=== PATIENT | female | born 1975 | race Caucasian/White ===

== ENCOUNTER 2020-03-26 16:06 | Emergency (ER) | payer OTHER ==
[~2020-03-26] VITALS: Ht 167.6 cm; Wt 68.0 kg
[~2020-03-26 16:06] MED LIST: ALPRAZOLAM; CLONAZEPAM 0.50.5 M1 PO; HYDROCODONE-AP1 EAC6 PO; LITHIUM CARBON300 M6 PO; PAROXETINE HCL20 MG PO; PAXIL; SEROQUEL 25 MG25 M1 PO; SEROQUEL300 MG PO; TRINATE TABLET1 TAB PO
[2020-03-26] MEDS ORDERED: ADDERALL 20 MG20 MG PO (16:23)
[2020-03-26] MEDS ORDERED: CLONAZEPAM 0.50.5 M1 PO (16:23)
[2020-03-26] MEDS ORDERED: CENTANY30 GM TOP (16:42)
[2020-03-26] MEDS ORDERED: IBUPROFEN 800800 M1 PO (16:42)
[2020-03-26] MEDS ORDERED: AUGMENTIN 875-1 EACH PO (16:42)
[2020-03-26 16:54] VITALS: BP 126/78
== END 2020-03-26 16:55 | disposition home or self-care (01) ==
LOC: M.ERS 16:06
DX: S61.211A Laceration without foreign body of left index finger without damage to nail, initial encounter (principal); Z88.5 Allergy status to narcotic agent; W26.0XXA Contact with knife, initial encounter; Y93.89 Activity, other specified; Y92.89 Other specified places as the place of occurrence of the external cause; Y99.8 Other external cause status

== ENCOUNTER 2020-05-18 06:32 | Emergency (ER) | payer OTHER ==
[~2020-05-18] VITALS: Ht 170.2 cm; Wt 59.0 kg
[~2020-05-18 06:32] MED LIST changes: +ADDERALL 20 MG20 MG PO; +AUGMENTIN 875-1 EACH PO; +CENTANY30 GM TOP; +IBUPROFEN 800800 M1 PO
[2020-05-18] MEDS ORDERED: HTN MED (06:51)
[2020-05-18 07:22] LABS: HEMATOCRIT 35.2 % (37.0-47.0); HEMOGLOBIN 11.5 gm/dL (12.0-15.0); MCH 32.7 pg (26.0-34.0); MCHC 32.6 g/dL (28.0-37.0); MCV 100.1 fL (80.0-100.0); MPV 8.4 fl. (7.2-11.1); NUCLEATED RBCS 0 /100WBC; PLATELET COUNT* 244 thou/uL (150-400); RBC 3.51 mil/uL (4.20-5.00); RDW-CV 14.2 % (10.5-14.5); WBC 19.7 thou/uL (4.0-11.0)
[2020-05-18 07:22] LABS: URINE BILIRUBIN NEGATIVE (Negative); URINE BLOOD 1+ (Negative); URINE CLARITY CLEAR; URINE COLOR YELLOW; URINE GLUCOSE-RANDOM 1+ (Negative); URINE KETONES NEGATIVE (Negative); URINE NITRITE-REFLEX NEGATIVE (Negative); URINE PROTEIN 1+ (Negative)
[2020-05-18 07:25] LABS: URINE LEUKOCYTES-REFLEX 2+ (Negative)
[2020-05-18 07:30] LABS: CALCIUM 8.9 mg/dL (8.5-10.1); CREATININE 1.7 mg/dL (0.6-1.3); POTASSIUM 3.7 mmol/L (3.5-5.1)
[2020-05-18 07:32] LABS: SQUAMOUS 0-3 Few /LPF (0-3)
[2020-05-18 07:33] LABS: CASTS None Seen /LPF (None Seen); CRYSTALS None Seen /LPF (None Seen); MUCUS 0-3 Light strn/LPF (None Seen); URINE RBC 3-10 Few /HPF (0-2); URINE WBC-REFLEX >25 Many /HPF (0-5)
[2020-05-18 07:34] LABS: TOTAL BILIRUBIN 0.5 mg/dL (<0.1-1.0); TOTAL PROTEIN 6.8 g/dL (6.4-8.2)
[2020-05-18 08:34] LABS: ABSOLUTE BASOPHILS 0.2 thou/uL (0.0-0.2); ABSOLUTE LYMPHOCYTES 0.8 thou/uL (0.8-5.3); ABSOLUTE MONOCYTES 1.2 thou/uL (0.0-1.2); ABSOLUTE NEUTROPHILS 17.5 thou/uL (1.6-8.1); PLATELET ESTIMATE ADEQUATE
[2020-05-18 08:35] LABS: ANISOCYTOSIS 1+; POIKILOCYTOSIS 1+
[2020-05-18] MEDS ORDERED: ZOFRAN ODT4 MG DISSOLVE (10:06)
[2020-05-18] MEDS ORDERED: CIPROFLOXACIN500 M1 PO (10:06)
[2020-05-18] MEDS ORDERED: HYDROCODON-ACE1 EAC7 PO (10:06)
[2020-05-18 10:35] VITALS: BP 127/80
== END 2020-05-18 10:35 | disposition home or self-care (01) ==
LOC: M.ERS 06:32
PROVIDERS: Family Medicine
DX: N20.0 Calculus of kidney (principal); N39.0 Urinary tract infection, site not specified; Z88.5 Allergy status to narcotic agent; Z87.440 Personal history of urinary (tract) infections

== ENCOUNTER 2020-08-10 06:37 | Emergency (ER) | payer OTHER ==
[~2020-08-10] VITALS: Ht 170.2 cm; Wt 54.4 kg
[~2020-08-10 06:37] MED LIST changes: +CIPROFLOXACIN500 M1 PO; +HYDROCODON-ACE1 EAC7 PO; +HYTRIN 2MG CAPSU2 M1 PO; -SEROQUEL 25 MG25 M1 PO; +SEROQUEL XR 30300 M1 PO; +ZOFRAN ODT4 MG DISSOLVE
[2020-08-10 07:20] LABS: URINE BILIRUBIN NEGATIVE (Negative); URINE BLOOD 2+ (Negative); URINE CLARITY CLEAR; URINE COLOR YELLOW; URINE GLUCOSE-RANDOM NEGATIVE (Negative); URINE KETONES NEGATIVE (Negative); URINE NITRITE-REFLEX NEGATIVE (Negative); URINE PROTEIN 1+ (Negative); URINE SPECIFIC GRAVITY <= 1.005 (1.005-1.030); URINE UROBILINOGEN 0.2 E.U./dl (0.2-1.0)
[2020-08-10 07:22] LABS: URINE LEUKOCYTES-REFLEX 3+ (Negative)
[2020-08-10 07:27] LABS: CASTS None Seen /LPF (None Seen); CRYSTALS None Seen /LPF (None Seen); MUCUS 0-3 Light strn/LPF (None Seen); SQUAMOUS 0-3 Few /LPF (0-3); URINE RBC 3-10 Few /HPF (0-2); URINE WBC-REFLEX >25 Many /HPF (0-5)
[2020-08-10 07:45] LABS: HEMATOCRIT 29.2 % (37.0-47.0); MCH 33.8 pg (26.0-34.0); MCHC 34.2 g/dL (28.0-37.0); NUCLEATED RBCS 0 /100WBC; PLATELET COUNT* 219 thou/uL (150-400); RBC 2.95 mil/uL (4.20-5.00); RDW-CV 15.1 % (10.5-14.5); WBC 14.2 thou/uL (4.0-11.0)
[2020-08-10 07:55] LABS: CALCIUM 9.3 mg/dL (8.5-10.1); CREATININE 2.3 mg/dL (0.6-1.3); POTASSIUM 3.2 mmol/L (3.5-5.1)
[2020-08-10 08:00] LABS: ALBUMIN 2.3 g/dL (3.4-5.0); TOTAL BILIRUBIN 0.3 mg/dL (<0.1-1.0); TOTAL PROTEIN 6.1 g/dL (6.4-8.2)
[2020-08-10 08:13] LABS: ABSOLUTE BASOPHILS 0.1 thou/uL (0.0-0.2); ABSOLUTE LYMPHOCYTES 0.1 thou/uL (0.8-5.3); ABSOLUTE MONOCYTES 0.3 thou/uL (0.0-1.2); ABSOLUTE NEUTROPHILS 13.6 thou/uL (1.6-8.1); PLATELET ESTIMATE ADEQUATE
[2020-08-10] MEDS ORDERED: ZOFRAN ODT4 MG DISSOLVE (08:50)
[2020-08-10] MEDS ORDERED: FLOMAX0.4 MG PO (08:50)
[2020-08-10] MEDS ORDERED: HYDROCODON-ACE1 EAC7 PO (08:50)
[2020-08-10] MEDS ORDERED: CEPHALEXIN500 MG PO (08:50)
[2020-08-10 09:00] VITALS: BP 97/73
== END 2020-08-10 09:00 | disposition left against medical advice (07) ==
LOC: M.ERS 06:37
PROVIDERS: Emergency Medicine Emergency Medical Services
DX: N20.0 Calculus of kidney (principal); N39.0 Urinary tract infection, site not specified; N19 Unspecified kidney failure; Z87.442 Personal history of urinary calculi; Z87.440 Personal history of urinary (tract) infections; Z88.5 Allergy status to narcotic agent

== ENCOUNTER 2020-08-14 19:37 | Inpatient (IN) | payer OTHER ==
[~2020-08-14] VITALS: Ht 170.2 cm; Wt 60.1 kg
--- NOTE | ~2020-08-14 | OP ---
[address] [address] OPERATIVE REPORT Name: DOUGLAS BLISSN Room: [address] M.R.#: [id number] Admission: 08/14/20 Attend Phys: Cintia Dutton MD Discharge: 08/15/20 Date of : 79 Report #: [id number] THIS REPORT FOR: cc: DINA - No family physician/PCP DINA - No family physician/PCP Carey Carty MD ~ DOC #: [id number] Carey Carty DATE OF SURGERY: 08/15/2020 PREOPERATIVE DIAGNOSIS: Left ureteral stone. POSTOPERATIVE DIAGNOSIS: Left ureteral stone. PROCEDURES PERFORMED: Cystoscopy, left retrograde pyelogram, left ureteroscopy, laser lithotripsy, basket retrieval of stone fragments, left ureteral stent placement, 4.8-Malaysian x 26 cm with strings removed. SURGEON: Carey Carty MD [employer]: None. ANESTHETIC: General along with a 2% lidocaine jelly placed locally intraurethral. ESTIMATED BLOOD LOSS: 1 mL. SPECIMEN: Stone fragments sent to lab. DRAINS: Left ureteral stent placement, 4.8-Malaysian x 26 cm with strings removed. COMPLICATIONS: None. FINDINGS: There is a radiopaque left distal ureteral stone with associated ureteral edema and inflammation. INDICATIONS: This 45-year-old female had presented to the ER failing outpatient pain control and had developed renal failure due to a large distal ureteral stone measuring 7.2 mm. She voiced understanding of risks including bleeding, infection, requiring a staged procedure with removal of the stone at a later time, damage to the kidney, ureter, or bladder. The temporary nature of the stent was in need for stent removal in the future, that may include either office cystoscopy or strings left on the stent. She voiced understanding of risks and benefits and signed the informed consent. DESCRIPTION OF PROCEDURE: The patient had received [place] [address] OPERATIVE REPORT Name: DOUGLAS BLISS ANICETO Room: [address]#: [id number] Admission: 08/14/20 Attend Phys: Cintia Dutton MD Discharge: 08/15/20 Date of : 79 Report #: [id number] was also on scheduled Rocephin due to underlying urinary tract infection. After anesthesia was induced, she was placed in the lithotomy position. Genitalia prepped and draped in the usual sterile fashion. The 17-Malaysian rigid cystoscope was advanced through the urethra into the bladder and bladder evaluated with both 30-degree and 70-degree lens. She had orthotopic ureteral orifices. Urine was relatively clear and bladder mucosa was normal. In order to perform a left retrograde pyelogram, a 17-Malaysian cannula was exchanged for the 22.5-Malaysian cannula and this was advanced easily into the urethra into the bladder. The 5-Malaysian blue ureteral catheter was then advanced into the left ureteral orifice and a retrograde pyelogram performed. After the initial one, it showed the radiopaque stone. This showed the filling defect now and contrast flowed passed the stone relatively easily. The catheter was then removed. This straight tip sensor wire was then advanced into the left ureteral orifice and this did navigate past the stone easily into the left upper collecting system. The bladder was then drained and the cystoscope removed. The original 4.5-Malaysian semirigid ureteroscope lens appeared to be fractured, so this was not used. The second 4.5-Malaysian semirigid ureteroscope was then advanced into the urethra into the bladder; however, I was able to navigate into the left ureteral orifice to the stone, but due to the ureteroscope being somewhat angulated along its course rather than straight did prevent me from getting a good view point of the stone in order to safely treat with the laser. After several attempts, I decided that it would be better to go with a 6-Malaysian ureteroscope and the 4.5-Malaysian semirigid ureteroscope was exchanged for the 6-Malaysian Olympus semirigid ureteroscope. The ureteroscope itself was in great working condition, although the left ureteral orifice was not quite dilated to allow this to pass. Therefore, the 11-Malaysian inner dilator of a ureteral access sheath was then advanced over the wire under continuous fluoroscopy and appeared to stay distal to the stone in order to achieve some dilation of the distal ureteral orifice. The access sheath was backloaded off the wire. The 6-Malaysian semirigid ureteroscope was then advanced back into the bladder and this was able to advance into the left ureteral orifice and on to the level of the stone. The bladder had been drained prior to this. The 200 micron laser fiber was used at settings of 0.6 joules and 8 Hz and this was then used to fragment up the stone as some of the pieces were basketed out before final treatment of the remaining stone was able to be performed. The ureteroscope then confirmed that all the stone pieces had been removed. The ureter proximal to the stone was nicely dilated and there was no evidence of inflammation, although I did see some concentric rings that had developed probably due to the longstanding hydroureter and then the area that the stone had been lodged that was inflamed and more narrow, but there is no evidence of any injury or significant bleeding and no evidence of stone embedment, all the significant pieces had been removed. The ureteroscope was then removed. Stone pieces were collected and sent to the lab for analysis. The 22.5-Malaysian cystoscope was advanced back into the urethra into the bladder. Left retrograde pyelogram was repeated to show the upper collecting system and then over the wire, the 4.8-Malaysian x [place] [address] OPERATIVE REPORT Name: DOUGLAS BLISS Room: [address]#: [id number] Admission: 08/14/20 Attend Phys: Cintia Dutton MD Discharge: 08/15/20 Date of : 79 Report #: [id number] advanced and deployed over the wire with a good coil in the left renal pelvis under fluoroscopy and I visualized a good coil in the bladder after the wire was removed. There was good efflux from the stent. The bladder was drained. There was no evidence of any injury to the bladder and the cystoscope was removed and the 2% lidocaine jelly was placed intraurethral. She was placed back in supine position, awakened, and taken to recovery room in stable condition. There were no complications. I called her boyfriend, Kris following the procedure to let him know how the case had gone and plan is for the stent to be removed in the office in the next 1-2 weeks. Carey DOZIER/CANDIDA By: [id number] Carty MD /summer
[~2020-08-14 19:37] MED LIST changes: +CEPHALEXIN500 MG PO; +FLOMAX0.4 MG PO
[2020-08-14 19:45] VITALS: BP 152/97
[2020-08-14 19:55] LABS: URINE BILIRUBIN NEGATIVE (Negative); URINE BLOOD NEGATIVE (Negative); URINE CLARITY CLEAR; URINE COLOR YELLOW; URINE GLUCOSE-RANDOM NEGATIVE (Negative); URINE KETONES NEGATIVE (Negative); URINE LEUKOCYTES-REFLEX 1+ (Negative); URINE NITRITE-REFLEX NEGATIVE (Negative); URINE PROTEIN 1+ (Negative); URINE SPECIFIC GRAVITY 1.015 (1.005-1.030); URINE UROBILINOGEN 0.2 E.U./dl (0.2-1.0)
[2020-08-14 20:01] LABS: BACTERIA-REFLEX 1-9 Few /HPF (None Seen); CASTS None Seen /LPF (None Seen); CRYSTALS None Seen /LPF (None Seen); SQUAMOUS 0-3 Few /LPF (0-3); URINE RBC 0-2 Rare /HPF (0-2); URINE WBC-REFLEX 6-15 Few /HPF (0-5)
[2020-08-14 21:11] LABS: ABSOLUTE EOSINOPHILS 0.2 thou/uL (0.0-0.7); ABSOLUTE LYMPHOCYTES 0.8 thou/uL (0.8-5.3); ABSOLUTE MONOCYTES 0.7 thou/uL (0.0-1.2); ABSOLUTE NEUTROPHILS 5.4 thou/uL (1.6-8.1); BASOPHILS 0.7 %; EOSINOPHILS 2.6 %; HEMATOCRIT 30.3 % (37.0-47.0); HEMOGLOBIN 10.4 gm/dL (12.0-15.0); LYMPHOCYTES 11.7 %; MCHC 34.4 g/dL (28.0-37.0); MCV 98.8 fL (80.0-100.0); MONOCYTES 9.5 %; MPV 7.7 fl. (7.2-11.1); NUCLEATED RBCS 0 /100WBC; PLATELET COUNT* 292 thou/uL (150-400); POLYS 75.5 %; RBC 3.07 mil/uL (4.20-5.00); RDW-CV 15.3 % (10.5-14.5); WBC 7.1 thou/uL (4.0-11.0)
[2020-08-14 21:27] LABS: CALCIUM 9.9 mg/dL (8.5-10.1)
[2020-08-14 21:28] LABS: POTASSIUM 2.8 mmol/L (3.5-5.1)
[2020-08-14 21:49] LABS: AMP/METHAMP POSITIVE (Negative); BARBITURATES Negative (Negative); BENZODIAZEPINES Negative (Negative); COCAINE Negative (Negative); METHADONE Negative (Negative); OPIATES POSITIVE (Negative); PCP Negative (Negative); THC POSITIVE (Negative)
[2020-08-15 00:41] VITALS: BP 146/82
[2020-08-15 04:28] VITALS: BP 135/72
[2020-08-15 08:16] VITALS: BP 135/105
[2020-08-15 09:06] VITALS: BP 135/105
[2020-08-15 09:25] VITALS: BP 174/105
[2020-08-15 12:40] LABS: CALCIUM 8.6 mg/dL (8.5-10.1); CREATININE 2.4 mg/dL (0.6-1.3); POTASSIUM 4.1 mmol/L (3.5-5.1)
[2020-08-15] MEDS ORDERED: EXCEDRIN MIGRA1 EAC1 PO (12:44)
[2020-08-15 20:05] VITALS: BP 169/89
== END 2020-08-15 21:06 | disposition left against medical advice (07) | DRG 659 ==
LOC: M.ERS 19:37 → M.TBA-ER 21:38 → M.ORTHSURG 08-15 09:27
PROVIDERS: Emergency Medicine; Physician Assistant; ADMIT Family Medicine; ATTEND Family Medicine
PROC: 0T778DZ Dilation of Left Ureter with Intraluminal Device, Via Natural or Artificial Opening Endoscopic (ICD-10-PCS; principal; 2020-08-15)
PROC: 0TC78ZZ Extirpation of Matter from Left Ureter, Via Natural or Artificial Opening Endoscopic (ICD-10-PCS; principal; 2020-08-15)
PROC: BT1F1ZZ Fluoroscopy of Left Kidney, Ureter and Bladder using Low Osmolar Contrast (ICD-10-PCS; principal; 2020-08-15)
DX: N20.2 Calculus of kidney with calculus of ureter (principal); N17.0 Acute kidney failure with tubular necrosis; N39.0 Urinary tract infection, site not specified; Z53.29 Procedure and treatment not carried out because of patient's decision for other reasons; Z20.822 Contact with and (suspected) exposure to COVID-19; F32.9 Major depressive disorder, single episode, unspecified; F17.290 Nicotine dependence, other tobacco product, uncomplicated; E87.6 Hypokalemia; D64.9 Anemia, unspecified; E86.0 Dehydration; F41.9 Anxiety disorder, unspecified; Z88.5 Allergy status to narcotic agent

== ENCOUNTER 2020-08-28 11:42 | Emergency (ER) | payer OTHER ==
[~2020-08-28] VITALS: Ht 170.2 cm; Wt 54.4 kg
[~2020-08-28 11:42] MED LIST changes: +EXCEDRIN MIGRA1 EAC1 PO
[2020-08-28 13:18] LABS: URINE BILIRUBIN NEGATIVE (Negative); URINE BLOOD 2+ (Negative); URINE CLARITY CLEAR; URINE COLOR YELLOW; URINE GLUCOSE-RANDOM NEGATIVE (Negative); URINE KETONES NEGATIVE (Negative); URINE NITRITE-REFLEX NEGATIVE (Negative); URINE PROTEIN 2+ (Negative); URINE SPECIFIC GRAVITY 1.025 (1.005-1.030); URINE UROBILINOGEN 0.2 E.U./dl (0.2-1.0)
[2020-08-28 13:20] LABS: URINE LEUKOCYTES-REFLEX 2+ (Negative)
[2020-08-28 13:29] LABS: BACTERIA-REFLEX 1-9 Few /HPF (None Seen); CASTS None Seen /LPF (None Seen); SQUAMOUS >10 Many /LPF (0-3); URINE RBC 3-10 Few /HPF (0-2); URINE WBC-REFLEX 6-15 Few /HPF (0-5)
[2020-08-28 13:30] LABS: CRYSTALS None Seen /LPF (None Seen)
[2020-08-28 13:45] LABS: NUCLEATED RBCS 0 /100WBC; WBC 8.6 thou/uL (4.0-11.0)
[2020-08-28 13:47] LABS: HEMATOCRIT 32.9 % (37.0-47.0); MCHC 33.5 g/dL (28.0-37.0); MCV 98.2 fL (80.0-100.0); MPV 7.4 fl. (7.2-11.1); PLATELET COUNT* 609 thou/uL (150-400); RBC 3.35 mil/uL (4.20-5.00); RDW-CV 13.4 % (10.5-14.5)
[2020-08-28 13:54] LABS: CALCIUM 9.4 mg/dL (8.5-10.1); CREATININE 1.7 mg/dL (0.6-1.3); POTASSIUM 4.7 mmol/L (3.5-5.1)
[2020-08-28] MEDS ORDERED: FLOMAX0.4 MG PO (14:26)
[2020-08-28] MEDS ORDERED: OXYBUTYNIN 5 MG5 M2 PO (14:26)
[2020-08-28 14:31] LABS: ABSOLUTE EOSINOPHILS 0.2 thou/uL (0.0-0.7); ABSOLUTE LYMPHOCYTES 1.5 thou/uL (0.8-5.3); ABSOLUTE MONOCYTES 0.9 thou/uL (0.0-1.2); LARGE PLATELETS RARE; PLATELET ESTIMATE INCREASED
[2020-08-28 14:45] VITALS: BP 110/78
== END 2020-08-28 14:45 | disposition home or self-care (01) ==
LOC: M.ERS 11:42
PROVIDERS: Emergency Medicine Emergency Medical Services; Nurse Practitioner Family
DX: T83.84XA Pain due to genitourinary prosthetic devices, implants and grafts, initial encounter (principal); Z87.440 Personal history of urinary (tract) infections; Z87.442 Personal history of urinary calculi; Z88.5 Allergy status to narcotic agent; Z79.899 Other long term (current) drug therapy; Y83.8 Other surgical procedures as the cause of abnormal reaction of the patient, or of later complication, without mention of misadventure at the time of the procedure; Y92.89 Other specified places as the place of occurrence of the external cause

== ENCOUNTER 2020-11-14 18:43 | Emergency (ER) | payer OTHER ==
[~2020-11-14] VITALS: Ht 170.2 cm; Wt 54.4 kg
[~2020-11-14 18:43] MED LIST changes: +OXYBUTYNIN 5 MG5 M2 PO
[2020-11-14] MEDS ORDERED: NORTRIPTYLINE H10 M1 PO (19:22)
[2020-11-14] MEDS ORDERED: HEADACHE MEDICATION PO (19:23)
[2020-11-14 19:44] LABS: URINE BILIRUBIN NEGATIVE (Negative); URINE BLOOD NEGATIVE (Negative); URINE CLARITY CLEAR; URINE COLOR YELLOW; URINE GLUCOSE-RANDOM NEGATIVE (Negative); URINE KETONES 1+ (Negative); URINE LEUKOCYTES-REFLEX NEGATIVE (Negative); URINE NITRITE-REFLEX NEGATIVE (Negative); URINE PROTEIN NEGATIVE (Negative); URINE SPECIFIC GRAVITY 1.025 (1.005-1.030); URINE UROBILINOGEN 0.2 E.U./dl (0.2-1.0)
[2020-11-14 19:51] LABS: AMP/METHAMP POSITIVE (Negative); BARBITURATES Negative (Negative); BENZODIAZEPINES Negative (Negative); COCAINE Negative (Negative); METHADONE Negative (Negative); OPIATES Negative (Negative); PCP Negative (Negative); THC POSITIVE (Negative)
[2020-11-14 20:12] LABS: HEMATOCRIT 35.2 % (37.0-47.0); HEMOGLOBIN 12.3 gm/dL (12.0-15.0); MCH 34.3 pg (26.0-34.0); MCHC 35.1 g/dL (28.0-37.0); MCV 97.8 fL (80.0-100.0); MPV 7.6 fl. (7.2-11.1); RBC 3.6 mil/uL (4.20-5.00); RDW-CV 12.2 % (10.5-14.5); WBC 6.9 thou/uL (4.0-11.0)
[2020-11-14 20:17] LABS: CALCIUM 8.9 mg/dL (8.5-10.1); CREATININE 1.5 mg/dL (0.6-1.3)
[2020-11-14 20:21] LABS: ALBUMIN 3.9 g/dL (3.4-5.0); TOTAL BILIRUBIN 0.7 mg/dL (<0.1-1.0); TOTAL PROTEIN 7.4 g/dL (6.4-8.2)
[2020-11-14] MEDS ORDERED: ZOFRAN ODT4 MG PO (21:49)
[2020-11-14] MEDS ORDERED: ACETAMINOPHEN-1 EAC2 PO (21:49)
[2020-11-14 22:15] VITALS: BP 150/70
== END 2020-11-14 22:15 | disposition home or self-care (01) ==
LOC: M.ERS 18:43
PROVIDERS: Nurse Practitioner Family; Personal Emergency Response Attendant
DX: R10.32 Left lower quadrant pain (principal); Z79.899 Other long term (current) drug therapy; Z88.5 Allergy status to narcotic agent; Z87.442 Personal history of urinary calculi

== ENCOUNTER 2021-02-22 04:50 | Emergency (ER) | payer OTHER ==
[~2021-02-22] VITALS: Ht 170.2 cm; Wt 52.2 kg
[~2021-02-22 04:50] MED LIST changes: +ACETAMINOPHEN-1 EAC2 PO; +HEADACHE MEDICATION PO; +NORTRIPTYLINE H10 M1 PO; +ZOFRAN ODT4 MG PO
[2021-02-22 05:30] LABS: INFLUENZA A ANTIGEN Negative (Negative); INFLUENZA B ANTIGEN Negative (Negative)
[2021-02-22] MEDS ORDERED: ZOFRAN ODT4 MG PO (06:05)
[2021-02-22 06:15] VITALS: BP 136/88
== END 2021-02-22 06:16 | disposition home or self-care (01) ==
LOC: M.ERS 04:50
PROVIDERS: Emergency Medicine
DX: U07.1 COVID-19 (principal); F41.9 Anxiety disorder, unspecified; F90.9 Attention-deficit hyperactivity disorder, unspecified type; F32.9 Major depressive disorder, single episode, unspecified; Z87.442 Personal history of urinary calculi; Z79.899 Other long term (current) drug therapy; Z79.82 Long term (current) use of aspirin; Z88.5 Allergy status to narcotic agent